=== PATIENT | male | born 1950 | race Caucasian/White ===

== ENCOUNTER 2018-08-28 22:09 | Inpatient (IN) ==
[2018-08-28 23:17] LABS: Basophils # 0.1 10*3/uL (0.0-0.2); Basophils % 0.2 % (0.0-0.8); Eosinophils # 0.2 10*3/uL (0.0-0.87); Eosinophils % 0.8 % (0.00-10.9); Immature Granulocytes % 0.4 %; Immature Granulocytes Absolute 0.09 #; Lymphocytes # 0.6 10*3/uL (1.4-4.0); Lymphocytes % 2.7 % (21.2-54.2); Mean Corpuscular HGB Conc 27.3 GM/DL (32-36); Mean Corpuscular Hemoglobin 22 PG (27-34); Mean Corpuscular Volume 80.1 FL (87-102); Mean Platelet Volume 9.6 FL (9.6-12.0); Monocytes # 1.1 10*3/uL (0.11-0.8); Monocytes % 4.9 % (1.7-12.7); Neutrophils # 20.3 10*3/uL (1.4-7.4); Platelet Count 266 T/CUMM (130-400); Red Blood Count 6.04 MC/CUMM (3.8-5.5); Red Cell Distribution Width 18.8 % (9.3-17.3); White Blood Count 22.3 T/CUMM (4-12)
[2018-08-28 23:35] LABS: Hematocrit 48.1 VOL% (42.0-52.0)
[2018-08-28 23:36] LABS: Hemoglobin 13.2 GM/DL (14.0-18.0)
[2018-08-28 23:39] LABS: Apearance,Urine CLEAR (Clear); Bacteria,Urine Occasional /HPF (Few); Bilirubin,Urine Negative (Negative); Blood, Urine Negative (Negative); Glucose,Urine (UA) Negative (Negative); Hyaline Casts,Urine 8 /LPF (0-3); Ketones,Urine Negative (Negative); Mucus,Urine Occasional /LPF (Occasional); Nitrite,Urine Negative (Negative); Protein,Urine Negative; RBC,Urine 1 /HPF (0-4); Squamous Epithelial Cell,Urine Occasional /HPF (0-10); Urine Color Yellow (Yellow); Urine Specific Gravity 1.018 (1.001-1.035); WBC,Urine 1 /HPF (0-6)
[2018-08-28 23:58] LABS: Band Neutrophils 8 % (0-10); Lymphocytes 4 % (20-55); Segmented Neutrophils 86 % (50-85); Total Cells Counted 100
[2018-08-29] LABS: Anisocytosis 1+
[2018-08-29 00:01] LABS: Ovalocytes Few; Platelet Estimate Normal
[2018-08-29 00:03] LABS: Albumin 3.2 G/DL (3.4-5.0); Bilirubin,Total 0.5 MG/DL (0.2-1.0); Calcium 7.9 MG/DL (8.5-10.1); Osmolality,Calculated 281.2 MOS/KG (273-304); Potassium 4.4 MMOL/L (3.5-5.1); Total Protein 6.9 G/DL (6.4-8.3)
[2018-08-29] MEDS ORDERED: cefTRIAXone 1,000 MG in SODIUM CHLORIDE 0.9% 100 ML IV STA (00:24)
[2018-08-29] MEDS ORDERED: ONDANSETRON 4 MG/2 ML VIAL IV PRN (00:58)
[2018-08-29] MEDS ORDERED: GLUCAGON 1 MG VIAL IM PRN (00:58)
[2018-08-29] MEDS ORDERED: DEXTROSE 50% 25 GM/50 ML SYRINGE IV PRN (00:58)
[2018-08-29] MEDS ORDERED: SODIUM CHLORIDE 0.9% 1,000 ML IV ONE (01:46)
[2018-08-29] MEDS: AZITHROMYCIN INJ 500 MG in SODIUM CHLORIDE 0.9% 250 ML IV SCH (04:39)
[2018-08-29] MEDS: ENOXAPARIN 40 MG/0.4 ML SYRINGE SUBCUT SCH (09:20)
[2018-08-29] MEDS: MONTELUKAST 10 MG TABLET PO SCH (09:21)
[2018-08-29] MEDS: SPIRONOLACTONE 50 MG TABLET PO SCH (09:21)
[2018-08-29] MEDS: CARVEDILOL 3.125 MG TABLET PO SCH ×2 (09:21→17:03)
[2018-08-29] MEDS: ASPIRIN EC 81 MG TABLET PO SCH (09:21)
[2018-08-29] MEDS: CLOPIDOGREL 75 MG TABLET PO SCH (09:21)
[2018-08-29] MEDS: ACETAMINOPHEN 325 MG TABLET PO PRN ×2 (09:21→22:35)
[2018-08-29] MEDS: cefTRIAXone 2,000 MG in SYRINGE 1 EACH IV SCH (09:22)
[2018-08-29] MEDS: PANTOPRAZOLE 40 MG TABLET PO SCH (09:22)
[2018-08-29] MEDS: INSULIN LISPRO 100 UNIT/ML SUBCUT SCH ×4 (09:22→22:39)
[2018-08-29] MEDS: BUDESONIDE/FORMOTEROL 160-4.5 INHALER 6 GM INH SCH (09:31)
[2018-08-29 09:35] LABS: Basophils % 0.2 % (0.0-0.8); Eosinophils # 0.1 10*3/uL (0.0-0.87); Eosinophils % 0.4 % (0.00-10.9); Immature Granulocytes % 0.6 %; Immature Granulocytes Absolute 0.08 #
[2018-08-29 09:56] LABS: Hematocrit 42.2 VOL% (42.0-52.0); Lymphocytes # 1.1 10*3/uL (1.4-4.0); Lymphocytes % 8.5 % (21.2-54.2); Mean Corpuscular HGB Conc 27.3 GM/DL (32-36); Mean Corpuscular Hemoglobin 22 PG (27-34); Mean Corpuscular Volume 79.3 FL (87-102); Mean Platelet Volume 9.6 FL (9.6-12.0); Monocytes # 0.6 10*3/uL (0.11-0.8); Monocytes % 4.2 % (1.7-12.7); Neutrophils # 11.6 10*3/uL (1.4-7.4); Neutrophils % 86.1 % (38.7-73.9); Platelet Count 262 T/CUMM (130-400); Red Blood Count 5.32 MC/CUMM (3.8-5.5); Red Cell Distribution Width 17.4 % (9.3-17.3); White Blood Count 13.5 T/CUMM (4-12)
[2018-08-29 10:01] LABS: Bilirubin,Total 0.4 MG/DL (0.2-1.0); Calcium 8.1 MG/DL (8.5-10.1); Total Protein 6.7 G/DL (6.4-8.3)
[2018-08-29 10:02] LABS: Hemoglobin 11.5 GM/DL (14.0-18.0)
[2018-08-29 10:11] LABS: Hypochromasia 1+; Ovalocytes Slight; Platelet Estimate Adequate
[2018-08-29 10:50] LABS: Hepatitis A Ab IgM Quant 0.14 Index; Hepatitis A Ab IgM Result Negative (Negative); Hepatitis B Core IgM Quant 0.12 Index; Hepatitis B Core IgM Result Negative (Negative); Hepatitis B Surface Ag Quant < 0.10 Index; Hepatitis B Surface Ag Result Negative (Negative); Hepatitis C Virus Ab Quant 0.08 Index; Hepatitis C Virus Ab Result Negative (Negative)
[2018-08-29] MEDS ORDERED: GABAPENTIN 600 MG TABLET PO ONE (11:16)
[2018-08-29] MEDS ORDERED: GABAPENTIN 600 MG TABLET PO SCH (15:00)
[2018-08-29] MEDS: GABAPENTIN 600 MG TABLET PO SCH (20:55)
[2018-08-29] MEDS ORDERED: ROSUVASTATIN 10 MG TABLET PO SCH (21:00)
[2018-08-30] MEDS: ACETAMINOPHEN 325 MG TABLET PO PRN (04:00)
[2018-08-30] MEDS: AZITHROMYCIN INJ 500 MG in SODIUM CHLORIDE 0.9% 250 ML IV SCH (04:01)
[2018-08-30 06:26] LABS: Bilirubin,Total 0.5 MG/DL (0.2-1.0); Calcium 8.3 MG/DL (8.5-10.1); Osmolality,Calculated 271.1 MOS/KG (273-304); Potassium 3.8 MMOL/L (3.5-5.1); Total Protein 6.5 G/DL (6.4-8.3)
[2018-08-30 06:44] LABS: Basophils % 0.3 % (0.0-0.8); Eosinophils # 0.3 10*3/uL (0.0-0.87); Eosinophils % 2.8 % (0.00-10.9); Hematocrit 40.9 VOL% (42.0-52.0); Immature Granulocytes % 0.7 %; Immature Granulocytes Absolute 0.07 #; Lymphocytes # 1.6 10*3/uL (1.4-4.0); Lymphocytes % 16.9 % (21.2-54.2); Mean Corpuscular HGB Conc 27.4 GM/DL (32-36); Mean Corpuscular Hemoglobin 22 PG (27-34); Mean Corpuscular Volume 80.2 FL (87-102); Mean Platelet Volume 9.7 FL (9.6-12.0); Monocytes # 0.7 10*3/uL (0.11-0.8); Monocytes % 7.2 % (1.7-12.7); Neutrophils # 6.8 10*3/uL (1.4-7.4); Neutrophils % 72.1 % (38.7-73.9); Platelet Count 237 T/CUMM (130-400); Red Cell Distribution Width 17.6 % (9.3-17.3); White Blood Count 9.5 T/CUMM (4-12)
[2018-08-30 06:45] LABS: Hemoglobin 11.2 GM/DL (14.0-18.0)
[2018-08-30 07:03] LABS: Hypochromasia 1+; Ovalocytes Slight; Platelet Estimate Adequate
[2018-08-30] MEDS: INSULIN LISPRO 100 UNIT/ML SUBCUT SCH ×2 (10:11→11:34)
[2018-08-30] MEDS: cefTRIAXone 2,000 MG in SYRINGE 1 EACH IV SCH (10:14)
[2018-08-30] MEDS: ENOXAPARIN 40 MG/0.4 ML SYRINGE SUBCUT SCH (10:14)
[2018-08-30] MEDS: CARVEDILOL 3.125 MG TABLET PO SCH (10:15)
[2018-08-30] MEDS: GABAPENTIN 600 MG TABLET PO SCH (10:15)
[2018-08-30] MEDS: MONTELUKAST 10 MG TABLET PO SCH (10:15)
[2018-08-30] MEDS: SPIRONOLACTONE 50 MG TABLET PO SCH (10:15)
[2018-08-30] MEDS: ASPIRIN EC 81 MG TABLET PO SCH (10:15)
[2018-08-30] MEDS: BUDESONIDE/FORMOTEROL 160-4.5 INHALER 6 GM INH SCH (10:15)
[2018-08-30] MEDS: CLOPIDOGREL 75 MG TABLET PO SCH (10:15)
[2018-08-30] MEDS: PANTOPRAZOLE 40 MG TABLET PO SCH (10:15)
[2018-08-30 11:05] VITALS: BP 150/88
== END 2018-08-30 11:34 | disposition home or self-care (01) | DRG 444 ==
LOC: N.ED 22:09 → N.EDINP 08-29 00:58 → N.5E 08-29 03:37
PROVIDERS: ADMIT Internal Medicine; ATTEND Internal Medicine

== ENCOUNTER 2021-05-10 12:49 | Observation (INO) ==
[2021-05-10] MEDS: methylPREDNISolone SOD SUC 40 MG/1 ML VIAL IV SCH (15:23)
[2021-05-10] MEDS ORDERED: ACETAMINOPHEN 325 MG TABLET PO PRN (16:27)
[2021-05-10] MEDS ORDERED: DEXTROSE 50% 25 GM/50 ML VIAL IV PRN ×2 (16:27)
[2021-05-10] MEDS ORDERED: ONDANSETRON 4 MG/2 ML VIAL IV PRN (16:27)
[2021-05-10] MEDS ORDERED: GLUCAGON 1 MG VIAL IM PRN ×2 (16:27)
[2021-05-10 17:09] LABS: Albumin 2.8 G/DL (3.4-5.0); Bilirubin,Total 0.6 MG/DL (0.20-1.00); Calcium 8.5 MG/DL (8.5-10.1); Osmolality,Calculated 283.5 MOS/KG (273-304); Potassium 5.3 MMOL/L (3.5-5.1); Total Protein 6.8 G/DL (6.4-8.2)
[2021-05-10 17:10] LABS: Basophils # 0.1 10*3/uL (0.0-0.2); Basophils % 1.1 % (0.0-0.8); Eosinophils # 0.9 10*3/uL (0.0-0.87); Eosinophils % 13.5 % (0.00-10.9); Hematocrit 51.6 VOL% (42.0-52.0); Hemoglobin 14.4 GM/DL (14.0-18.0); Immature Granulocytes % 1.9 %; Immature Granulocytes Absolute 0.12 #; Lymphocytes # 0.8 10*3/uL (1.4-4.0); Lymphocytes % 12.5 % (21.2-54.2); Mean Corpuscular HGB Conc 27.9 GM/DL (32-36); Mean Corpuscular Volume 88.5 FL (87-102); Mean Platelet Volume 8.6 FL (9.6-12.0); Monocytes % 7.1 % (1.7-12.7); NRBC # 0.04 10*3/uL; Neutrophils % 63.9 % (38.7-73.9); Platelet Count 172 T/CUMM (130-400); Red Blood Count 5.83 MC/CUMM (3.8-5.5); White Blood Count 6.4 T/CUMM (4-12)
[2021-05-10] MEDS: INSULIN LISPRO 100 UNIT/ML SUBCUT SCH ×2 (17:12→22:22)
[2021-05-10 17:13] LABS: ABG HCO3 28.4 MMOL/L (20-26); ABG Oxygen Saturation 80.7 % (95-100); ABG PCO2 62.6 MM HG (35-48); ABG PH 7.275 (7.35-7.45); ABG PO2 48.7 MM HG (80-95); ABG TCO2 30.3 MMOL/L (23-27)
[2021-05-10] MEDS: cefTRIAXone 2,000 MG in SODIUM CHLORIDE 0.9% 100 ML IV SCH (17:24)
[2021-05-10 17:33] LABS: Band Neutrophils 2 % (0-10); Eosinophils 12 % (0-10); Lymphocytes 13 % (20-55); Nucleated Red Blood Cells 3 (0-5); Segmented Neutrophils 68 % (50-85); Total Cells Counted 100
[2021-05-10 17:37] LABS: Anisocytosis 3+; Atypical Lymphocytes Few; Macrocytosis 2+; Microcytosis 3+; Platelet Estimate Adequate; Polychromasia 1+
[2021-05-10 17:38] LABS: Hypochromasia 1+
[2021-05-10] MEDS ORDERED: ALBUTEROL/IPRATROPIUM 3 ML NEB RESP TX SCH (19:00)
[2021-05-10] MEDS: SODIUM CHLORIDE 0.9% 1,000 ML IV SCH (19:05)
[2021-05-10] MEDS: ALBUTEROL/IPRATROPIUM 3 ML NEB RESP TX SCH ×2 (20:05→23:25)
[2021-05-10 21:00] LABS: ABG HCO3 24.3 MMOL/L (20-26); ABG Oxygen Saturation 94.1 % (95-100); ABG PO2 86.1 MM HG (80-95); ABG TCO2 28.1 MMOL/L (23-27)
[2021-05-10 21:04] LABS: ABG PCO2 80.1 MM HG (35-48); ABG PH 7.205 (7.35-7.45)
[2021-05-10] MEDS: DICLOFENAC SODIUM 75 MG TABLET PO SCH (22:21)
[2021-05-10] MEDS: ENOXAPARIN 30 MG/0.3 ML SYRINGE SUBCUT SCH (22:22)
[2021-05-10] MEDS: AZITHROMYCIN INJ 500 MG in SODIUM CHLORIDE 0.9% 250 ML IV SCH (23:49)
[2021-05-11] MEDS: methylPREDNISolone SOD SUC 40 MG/1 ML VIAL IV SCH ×3 (01:26→16:59)
[2021-05-11] MEDS: ALBUTEROL/IPRATROPIUM 3 ML NEB RESP TX SCH ×5 (03:05→20:50)
[2021-05-11 06:35] LABS: Osmolality,Calculated 281.7 MOS/KG (273-304); Potassium 5.8 MMOL/L (3.5-5.1)
[2021-05-11 06:48] LABS: Risk Ratio 3.85; Thyroid Stimulating Hormone 0.575 uIU/ml (0.358-3.74); VLDL Cholesterol 14.2 MG/DL
[2021-05-11 06:54] LABS: Basophils % 0.6 % (0.0-0.8); Eosinophils % 0.4 % (0.00-10.9); Hematocrit 50.9 VOL% (42.0-52.0); Hemoglobin 13.7 GM/DL (14.0-18.0); Immature Granulocytes % 1.7 %; Immature Granulocytes Absolute 0.09 #; Lymphocytes # 0.6 10*3/uL (1.4-4.0); Lymphocytes % 10.1 % (21.2-54.2); Mean Corpuscular HGB Conc 26.9 GM/DL (32-36); Mean Corpuscular Volume 89.5 FL (87-102); Mean Platelet Volume 9.1 FL (9.6-12.0); Monocytes % 1.1 % (1.7-12.7); NRBC # 0.04 10*3/uL; Neutrophils % 86.1 % (38.7-73.9); Platelet Count 197 T/CUMM (130-400); Red Blood Count 5.69 MC/CUMM (3.8-5.5); Red Cell Distribution Width 20.5 % (9.3-17.3); White Blood Count 5.4 T/CUMM (4-12)
[2021-05-11] MEDS ORDERED: SODIUM POLYSTYRENE SULFATE 15 GM/60 ML BOTTLE PO ONE (07:50)
[2021-05-11] MEDS: INSULIN LISPRO 100 UNIT/ML SUBCUT SCH ×4 (07:50→22:39)
[2021-05-11] MEDS: ASPIRIN CHEW 81 MG TABLET PO SCH (09:45)
[2021-05-11] MEDS: DICLOFENAC SODIUM 75 MG TABLET PO SCH ×2 (09:46→22:39)
[2021-05-11 10:54] LABS: ABG Base Excess 0.5 MMOL/L (-2.5-2.5); ABG HCO3 28.6 MMOL/L (20-26); ABG Oxygen Saturation 98.4 % (95-100); ABG PCO2 61.4 MM HG (35-48); ABG PH 7.286 (7.35-7.45); ABG PO2 124.2 MM HG (80-95); ABG TCO2 30.5 MMOL/L (23-27); Allen Test Positive; Pt O2 Delivery Device BIPAP
[2021-05-11 12:06] LABS: Ferritin 19.6 ng/mL (26-388)
[2021-05-11 12:23] LABS: Bilirubin,Urine Negative (Negative); Blood, Urine Large mg/dL (Negative); Glucose,Urine (UA) Negative (Negative); Ketones,Urine Negative (Negative); Mucus,Urine Occasional /LPF (Occasional); Nitrite,Urine Negative (Negative); Protein,Urine 100 MG/DL; RBC,Urine 107 /HPF (0-4); Squamous Epithelial Cell,Urine Occasional /HPF (0-10); Urine Appearance CLEAR (Clear); Urine Color Amber (Yellow); Urine Specific Gravity 1.044 (1.001-1.035)
[2021-05-11] MEDS: ARFORMOTEROL 15 MCG/2 ML NEB RESP TX SCH ×2 (14:28→20:50)
[2021-05-11] MEDS: ACETYLCYSTEINE 20% 800 MG/4 ML VIAL RESP TX SCH (14:28)
[2021-05-11] MEDS: BUDESONIDE 0.5 MG/2 ML NEB RESP TX SCH ×2 (14:28→20:50)
[2021-05-11] MEDS: SODIUM CHLORIDE 0.9% 1,000 ML IV SCH (14:32)
[2021-05-11] MEDS: cefTRIAXone 2,000 MG in SODIUM CHLORIDE 0.9% 100 ML IV SCH (17:01)
[2021-05-11] MEDS: AZITHROMYCIN INJ 500 MG in SODIUM CHLORIDE 0.9% 250 ML IV SCH (22:37)
[2021-05-11] MEDS: ENOXAPARIN 30 MG/0.3 ML SYRINGE SUBCUT SCH (22:39)
[2021-05-12] MEDS: ACETYLCYSTEINE 20% 800 MG/4 ML VIAL RESP TX SCH ×4 (00:25→23:50)
[2021-05-12] MEDS: ALBUTEROL/IPRATROPIUM 3 ML NEB RESP TX SCH ×7 (00:26→23:50)
[2021-05-12] MEDS: methylPREDNISolone SOD SUC 40 MG/1 ML VIAL IV SCH ×3 (03:13→17:49)
[2021-05-12 05:28] LABS: Calcium 8.1 MG/DL (8.5-10.1); Osmolality,Calculated 285.5 MOS/KG (273-304); Potassium 4.7 MMOL/L (3.5-5.1)
[2021-05-12 05:47] LABS: Basophils % 0.1 % (0.0-0.8); Eosinophils % 0.1 % (0.00-10.9); Hematocrit 49.4 VOL% (42.0-52.0); Immature Granulocytes % 1.3 %; Immature Granulocytes Absolute 0.13 #; Lymphocytes # 0.6 10*3/uL (1.4-4.0); Lymphocytes % 6.2 % (21.2-54.2); Mean Corpuscular HGB Conc 27.1 GM/DL (32-36); Mean Corpuscular Volume 88.4 FL (87-102); Mean Platelet Volume 9.8 FL (9.6-12.0); Monocytes % 5.7 % (1.7-12.7); NRBC # 0.03 10*3/uL; Neutrophils % 86.6 % (38.7-73.9); Platelet Count 218 T/CUMM (130-400); Red Blood Count 5.59 MC/CUMM (3.8-5.5); Red Cell Distribution Width 20.6 % (9.3-17.3); White Blood Count 9.8 T/CUMM (4-12)
[2021-05-12 06:04] LABS: Hemoglobin 13.4 GM/DL (14.0-18.0)
[2021-05-12] MEDS: BUDESONIDE 0.5 MG/2 ML NEB RESP TX SCH ×2 (07:00→19:47)
[2021-05-12] MEDS: ARFORMOTEROL 15 MCG/2 ML NEB RESP TX SCH ×2 (07:00→19:47)
[2021-05-12 08:45] LABS: ABG Base Excess 0.2 MMOL/L (-2.5-2.5); ABG HCO3 24.5 MMOL/L (20-26); ABG Oxygen Saturation 91.3 % (95-100); ABG PCO2 66.8 MM HG (35-48); ABG PH 7.258 (7.35-7.45); ABG PO2 72.5 MM HG (80-95); ABG TCO2 26.2 MMOL/L (23-27)
[2021-05-12] MEDS: ASPIRIN CHEW 81 MG TABLET PO SCH (09:06)
[2021-05-12] MEDS: DICLOFENAC SODIUM 75 MG TABLET PO SCH ×2 (09:06→20:59)
[2021-05-12] MEDS: INSULIN LISPRO 100 UNIT/ML SUBCUT SCH ×4 (11:05→20:59)
[2021-05-12 16:11] LABS: ABG Base Excess 0.2 MMOL/L (-2.5-2.5); ABG HCO3 29.4 MMOL/L (20-26); ABG Oxygen Saturation 97.2 % (95-100); ABG PH 7.247 (7.35-7.45); ABG PO2 104.8 MM HG (80-95); ABG TCO2 31.5 MMOL/L (23-27); Allen Test Positive; Pt O2 Delivery Device BIPAP
[2021-05-12] MEDS: cefTRIAXone 2,000 MG in SODIUM CHLORIDE 0.9% 100 ML IV SCH (16:11)
[2021-05-12] MEDS: ENOXAPARIN 30 MG/0.3 ML SYRINGE SUBCUT SCH (20:58)
[2021-05-12] MEDS ORDERED: MENTHOL/ZINC OXIDE OINT 71 GM JAR TOP SCH (21:00)
[2021-05-12] MEDS: AZITHROMYCIN INJ 500 MG in SODIUM CHLORIDE 0.9% 250 ML IV SCH (21:00)
[2021-05-12 21:47] LABS: ABG Base Excess 1.7 MMOL/L (-2.5-2.5); ABG HCO3 25.9 MMOL/L (20-26); ABG Oxygen Saturation 96.3 % (95-100); ABG PCO2 64.7 MM HG (35-48); ABG PH 7.285 (7.35-7.45); ABG PO2 91.7 MM HG (80-95)
[2021-05-13] MEDS: methylPREDNISolone SOD SUC 40 MG/1 ML VIAL IV SCH ×2 (00:12→10:00)
[2021-05-13] MEDS: ALBUTEROL/IPRATROPIUM 3 ML NEB RESP TX SCH ×3 (04:10→11:16)
[2021-05-13 05:48] LABS: Calcium 8.5 MG/DL (8.5-10.1); Osmolality,Calculated 286.5 MOS/KG (273-304); Potassium 5.1 MMOL/L (3.5-5.1)
[2021-05-13 06:16] LABS: Basophils % 0.1 % (0.0-0.8); Hematocrit 51.2 VOL% (42.0-52.0); Immature Granulocytes % 0.6 %; Immature Granulocytes Absolute 0.05 #; Lymphocytes # 0.6 10*3/uL (1.4-4.0); Lymphocytes % 6.5 % (21.2-54.2); Mean Corpuscular HGB Conc 28.1 GM/DL (32-36); Mean Corpuscular Volume 87.8 FL (87-102); Mean Platelet Volume 9.5 FL (9.6-12.0); Monocytes % 2.1 % (1.7-12.7); NRBC # 0.02 10*3/uL; Neutrophils % 90.7 % (38.7-73.9); Platelet Count 207 T/CUMM (130-400); Red Blood Count 5.83 MC/CUMM (3.8-5.5); Red Cell Distribution Width 20.8 % (9.3-17.3); White Blood Count 8.4 T/CUMM (4-12)
[2021-05-13 06:17] LABS: Hemoglobin 14.4 GM/DL (14.0-18.0)
[2021-05-13 06:21] LABS: Band Neutrophils 1 % (0-10); Lymphocytes 4 % (20-55); Platelet Estimate Normal; Segmented Neutrophils 94 % (50-85); Total Cells Counted 100
[2021-05-13] MEDS: ACETYLCYSTEINE 20% 800 MG/4 ML VIAL RESP TX SCH (07:21)
[2021-05-13] MEDS: ARFORMOTEROL 15 MCG/2 ML NEB RESP TX SCH (07:21)
[2021-05-13] MEDS: BUDESONIDE 0.5 MG/2 ML NEB RESP TX SCH (07:21)
[2021-05-13] MEDS ORDERED: FUROSEMIDE 40 MG/4 ML VIAL IV ONE (08:30)
[2021-05-13] MEDS: ASPIRIN CHEW 81 MG TABLET PO SCH (10:01)
[2021-05-13] MEDS: DICLOFENAC SODIUM 75 MG TABLET PO SCH (10:01)
[2021-05-13] MEDS: INSULIN LISPRO 100 UNIT/ML SUBCUT SCH (10:01)
[2021-05-13 12:24] VITALS: BP 149/90
== END 2021-05-13 12:54 | disposition home health service (06) ==
LOC: INTOOBSV 13:50 → N.TELEN 13:50 → SUATTDRO 13:50
PROVIDERS: ADMIT Internal Medicine; ATTEND Internal Medicine

== ENCOUNTER 2021-08-19 12:14 | Inpatient (IN) ==
[2021-08-19 12:57] LABS: INR 1.1; PT Patient Result 11.7 SECS (10.5-12.0)
[2021-08-19 13:10] LABS: Albumin 2.6 G/DL (3.4-5.0); Bilirubin,Total 1.4 MG/DL (0.20-1.00); Calcium 7.8 MG/DL (8.5-10.1); Osmolality,Calculated 280.4 MOS/KG (273-304); Potassium 4.6 MMOL/L (3.5-5.1); Total Protein 6.6 G/DL (6.4-8.2)
[2021-08-19] MEDS ORDERED: cefTRIAXone 1,000 MG in SODIUM CHLORIDE 0.9% 100 ML IV STA (13:27)
[2021-08-19] MEDS ORDERED: methylPREDNISolone SOD SUC 125 MG/2 ML VIAL IV STA (13:27)
[2021-08-19] MEDS ORDERED: ALBUTEROL/IPRATROPIUM 3 ML NEB RESP TX STA (13:27)
[2021-08-19 15:13] LABS: Basophils % 0.3 % (0.0-0.8); Eosinophils # 0.2 10*3/uL (0.0-0.87); Eosinophils % 5.1 % (0.00-10.9); Hematocrit 41.9 VOL% (42.0-52.0); Hemoglobin 12.2 GM/DL (14.0-18.0); Immature Granulocytes % 1.1 %; Immature Granulocytes Absolute 0.04 #; Lymphocytes # 0.8 10*3/uL (1.4-4.0); Lymphocytes % 19.9 % (21.2-54.2); Mean Corpuscular HGB Conc 29.1 GM/DL (32-36); Mean Corpuscular Volume 93.9 FL (87-102); Mean Platelet Volume 9.4 FL (9.6-12.0); Neutrophils % 64.6 % (38.7-73.9); Platelet Count 146 T/CUMM (130-400); Red Blood Count 4.46 MC/CUMM (3.8-5.5); Red Cell Distribution Width 18.1 % (9.3-17.3); White Blood Count 3.8 T/CUMM (4-12)
[2021-08-19] MEDS ORDERED: AZITHROMYCIN INJ 500 MG in SODIUM CHLORIDE 0.9% 250 ML IV ONE (16:34)
[2021-08-19] MEDS ORDERED: DEXTROSE 50% 25 GM/50 ML VIAL IV PRN (16:37)
[2021-08-19] MEDS ORDERED: GLUCAGON 1 MG VIAL IM PRN ×2 (16:37)
[2021-08-19] MEDS ORDERED: hydrALAZINE 20 MG/1 ML VIAL IV PRN (16:37)
[2021-08-19] MEDS ORDERED: DEXAMETHASONE 4 MG/1 ML VIAL IV SCH (17:00)
[2021-08-19] MEDS ORDERED: DEXTROSE 10% 25 GM/250 ML BAG IV PRN (17:00)
[2021-08-19] MEDS ORDERED: REMDESIVIR 200 MG in SODIUM CHLORIDE 0.9% 210 ML IV ONE (18:00)
[2021-08-19] MEDS: FUROSEMIDE 40 MG/4 ML VIAL IV SCH (18:05)
[2021-08-19 20:17] LABS: ABG Base Excess 5.5 MMOL/L (-2.5-2.5); ABG HCO3 29.2 MMOL/L (20-26); ABG Oxygen Saturation 91.3 % (95-100); ABG PH 7.308 (7.35-7.45); ABG PO2 64.2 MM HG (80-95); ABG TCO2 30.6 MMOL/L (23-27)
[2021-08-19] MEDS: INSULIN LISPRO 100 UNIT/ML SUBCUT SCH (21:00)
[2021-08-19] MEDS: GABAPENTIN 400 MG CAPSULE PO SCH (21:00)
[2021-08-19] MEDS: AMITRIPTYLINE 50 MG TABLET PO SCH (21:00)
[2021-08-19] MEDS: HEPARIN 5,000 UNIT/1 ML VIAL SUBCUT SCH (21:00)
[2021-08-19] MEDS: methylPREDNISolone SOD SUC 40 MG/1 ML VIAL IV SCH (21:00)
[2021-08-19] MEDS: ASCORBIC ACID 500 MG TABLET PO SCH (21:00)
[2021-08-19] MEDS: FAMOTIDINE 20 MG TABLET PO SCH (21:00)
[2021-08-19] MEDS: BUDESONIDE/FORMOTEROL 160-4.5 INHALER 6 GM INH SCH (21:00)
[2021-08-20] MEDS ORDERED: PNEUMOCOCCAL VACCINE (13 VALENT) 0.5 ML SYRINGE IM ONE (03:57)
[2021-08-20] MEDS: methylPREDNISolone SOD SUC 40 MG/1 ML VIAL IV SCH (06:06)
[2021-08-20] MEDS: HEPARIN 5,000 UNIT/1 ML VIAL SUBCUT SCH ×3 (06:07→20:48)
[2021-08-20 07:36] LABS: Calcium 8.3 MG/DL (8.5-10.1); Ferritin 66.3 ng/mL (26-388); Osmolality,Calculated 279.7 MOS/KG (273-304); Potassium 4.7 MMOL/L (3.5-5.1)
[2021-08-20 07:58] LABS: ABG Base Excess 7.3 MMOL/L (-2.5-2.5); ABG HCO3 30.6 MMOL/L (20-26); ABG Oxygen Saturation 77.9 % (95-100); ABG PH 7.312 (7.35-7.45); ABG PO2 45.8 MM HG (80-95); ABG TCO2 32.8 MMOL/L (23-27)
[2021-08-20 08:04] LABS: ABG PCO2 72.4 MM HG (35-48)
[2021-08-20] MEDS: INSULIN LISPRO 100 UNIT/ML SUBCUT SCH ×4 (08:32→20:48)
[2021-08-20] MEDS: GABAPENTIN 400 MG CAPSULE PO SCH ×3 (09:17→20:47)
[2021-08-20] MEDS: CHOLECALCIFEROL 1,000 UNIT TABLET PO SCH (09:17)
[2021-08-20] MEDS: ZINC GLUCONATE 50 MG TABLET PO SCH (09:17)
[2021-08-20] MEDS: CETIRIZINE 10 MG TABLET PO SCH (09:17)
[2021-08-20] MEDS: ASCORBIC ACID 500 MG TABLET PO SCH ×2 (09:18→20:47)
[2021-08-20] MEDS: SERTRALINE 25 MG TABLET PO SCH (09:19)
[2021-08-20] MEDS: ASPIRIN EC 81 MG TABLET PO SCH (09:19)
[2021-08-20] MEDS: CLOPIDOGREL 75 MG TABLET PO SCH (09:19)
[2021-08-20] MEDS: glipiZIDE 5 MG TABLET PO SCH (09:19)
[2021-08-20] MEDS: FAMOTIDINE 20 MG TABLET PO SCH ×2 (09:19→20:47)
[2021-08-20] MEDS: FUROSEMIDE 40 MG/4 ML VIAL IV SCH (09:25)
[2021-08-20] MEDS: DEXAMETHASONE 10 MG/1 ML VIAL IV SCH (09:25)
[2021-08-20] MEDS: INSULIN GLARGINE 100 UNIT/ML SUBCUT SCH (09:26)
[2021-08-20] MEDS: BUDESONIDE/FORMOTEROL 160-4.5 INHALER 6 GM INH SCH ×2 (09:26→20:48)
[2021-08-20] MEDS: REMDESIVIR 100 MG in SODIUM CHLORIDE 0.9% 100 ML IV SCH (09:34)
[2021-08-20 11:45] LABS: ABG Base Excess 7.9 MMOL/L (-2.5-2.5); ABG HCO3 31.7 MMOL/L (20-26); ABG PO2 93.7 MM HG (80-95); ABG TCO2 32.7 MMOL/L (23-27)
[2021-08-20 11:49] LABS: ABG PCO2 69.9 MM HG (35-48)
[2021-08-20] MEDS: AMITRIPTYLINE 50 MG TABLET PO SCH (20:47)
[2021-08-21] MEDS: HEPARIN 5,000 UNIT/1 ML VIAL SUBCUT SCH ×3 (05:05→21:16)
[2021-08-21 05:35] LABS: ABG Base Excess 7.7 MMOL/L (-2.5-2.5); ABG HCO3 31.5 MMOL/L (20-26); ABG Oxygen Saturation 99.2 % (95-100); ABG PH 7.303 (7.35-7.45); ABG TCO2 33.3 MMOL/L (23-27)
[2021-08-21 05:38] LABS: ABG PCO2 76.2 MM HG (35-48)
[2021-08-21 06:14] LABS: Calcium 8.2 MG/DL (8.5-10.1); Osmolality,Calculated 282.7 MOS/KG (273-304); Potassium 3.9 MMOL/L (3.5-5.1)
[2021-08-21 06:35] LABS: Basophils % 0.2 % (0.0-0.8); Hemoglobin 12.4 GM/DL (14.0-18.0); Immature Granulocytes % 0.8 %; Immature Granulocytes Absolute 0.04 #; Lymphocytes # 0.9 10*3/uL (1.4-4.0); Lymphocytes % 17.5 % (21.2-54.2); Mean Corpuscular HGB Conc 29.7 GM/DL (32-36); Mean Corpuscular Volume 93.9 FL (87-102); Mean Platelet Volume 9.7 FL (9.6-12.0); Monocytes % 9.5 % (1.7-12.7); Platelet Count 185 T/CUMM (130-400); Red Blood Count 4.44 MC/CUMM (3.8-5.5)
[2021-08-21 06:38] LABS: Hematocrit 41.7 VOL% (42.0-52.0)
[2021-08-21] MEDS: INSULIN LISPRO 100 UNIT/ML SUBCUT SCH ×4 (09:11→21:16)
[2021-08-21] MEDS: INSULIN GLARGINE 100 UNIT/ML SUBCUT SCH (09:18)
[2021-08-21] MEDS: FUROSEMIDE 40 MG/4 ML VIAL IV SCH (09:22)
[2021-08-21] MEDS: DEXAMETHASONE 10 MG/1 ML VIAL IV SCH (09:23)
[2021-08-21] MEDS: FAMOTIDINE 20 MG TABLET PO SCH ×2 (09:23→21:15)
[2021-08-21] MEDS: glipiZIDE 5 MG TABLET PO SCH (09:23)
[2021-08-21] MEDS: CHOLECALCIFEROL 1,000 UNIT TABLET PO SCH (09:24)
[2021-08-21] MEDS: ASCORBIC ACID 500 MG TABLET PO SCH ×2 (09:24→21:15)
[2021-08-21] MEDS: CETIRIZINE 10 MG TABLET PO SCH (09:24)
[2021-08-21] MEDS: ZINC GLUCONATE 50 MG TABLET PO SCH (09:24)
[2021-08-21] MEDS: CLOPIDOGREL 75 MG TABLET PO SCH (09:24)
[2021-08-21] MEDS: SERTRALINE 25 MG TABLET PO SCH (09:24)
[2021-08-21] MEDS: GABAPENTIN 400 MG CAPSULE PO SCH ×3 (09:24→21:15)
[2021-08-21] MEDS: ASPIRIN EC 81 MG TABLET PO SCH (09:24)
[2021-08-21] MEDS: REMDESIVIR 100 MG in SODIUM CHLORIDE 0.9% 100 ML IV SCH (09:25)
[2021-08-21] MEDS: BUDESONIDE/FORMOTEROL 160-4.5 INHALER 6 GM INH SCH ×2 (09:33→21:20)
[2021-08-21] MEDS: AZITHROMYCIN 250 MG TABLET PO SCH (14:42)
[2021-08-21] MEDS: AMITRIPTYLINE 50 MG TABLET PO SCH (21:15)
[2021-08-22 04:49] LABS: ABG Base Excess 10.6 MMOL/L (-2.5-2.5); ABG HCO3 34.3 MMOL/L (20-26); ABG Oxygen Saturation 97.6 % (95-100); ABG PH 7.335 (7.35-7.45); ABG TCO2 35.6 MMOL/L (23-27)
[2021-08-22 04:52] LABS: ABG PCO2 75.1 MM HG (35-48)
[2021-08-22 05:02] LABS: Osmolality,Calculated 287.4 MOS/KG (273-304); Potassium 4.7 MMOL/L (3.5-5.1)
[2021-08-22 05:10] LABS: Hematocrit 38.6 VOL% (42.0-52.0); Hemoglobin 11.7 GM/DL (14.0-18.0); Immature Granulocytes % 0.8 %; Immature Granulocytes Absolute 0.04 #; Lymphocytes % 20.3 % (21.2-54.2); Mean Corpuscular HGB Conc 30.3 GM/DL (32-36); Mean Corpuscular Volume 92.6 FL (87-102); Mean Platelet Volume 9.2 FL (9.6-12.0); Monocytes % 7.7 % (1.7-12.7); Neutrophils % 71.2 % (38.7-73.9); Platelet Count 155 T/CUMM (130-400); Red Blood Count 4.17 MC/CUMM (3.8-5.5); Red Cell Distribution Width 17.7 % (9.3-17.3); White Blood Count 5.1 T/CUMM (4-12)
[2021-08-22] MEDS: HEPARIN 5,000 UNIT/1 ML VIAL SUBCUT SCH ×3 (05:55→21:19)
[2021-08-22] MEDS: INSULIN LISPRO 100 UNIT/ML SUBCUT SCH ×4 (09:01→21:18)
[2021-08-22] MEDS: INSULIN GLARGINE 100 UNIT/ML SUBCUT SCH (10:32)
[2021-08-22] MEDS: CHOLECALCIFEROL 1,000 UNIT TABLET PO SCH (10:33)
[2021-08-22] MEDS: GABAPENTIN 400 MG CAPSULE PO SCH ×3 (10:33→21:18)
[2021-08-22] MEDS: CLOPIDOGREL 75 MG TABLET PO SCH (10:33)
[2021-08-22] MEDS: BUDESONIDE/FORMOTEROL 160-4.5 INHALER 6 GM INH SCH ×2 (10:33→22:30)
[2021-08-22] MEDS: ASCORBIC ACID 500 MG TABLET PO SCH ×2 (10:33→21:18)
[2021-08-22] MEDS: AZITHROMYCIN 250 MG TABLET PO SCH (10:33)
[2021-08-22] MEDS: FAMOTIDINE 20 MG TABLET PO SCH ×2 (10:34→21:17)
[2021-08-22] MEDS: SERTRALINE 25 MG TABLET PO SCH (10:34)
[2021-08-22] MEDS: CETIRIZINE 10 MG TABLET PO SCH (10:34)
[2021-08-22] MEDS: glipiZIDE 5 MG TABLET PO SCH (10:34)
[2021-08-22] MEDS: ZINC GLUCONATE 50 MG TABLET PO SCH (10:34)
[2021-08-22] MEDS: ASPIRIN EC 81 MG TABLET PO SCH (10:34)
[2021-08-22] MEDS: FUROSEMIDE 40 MG/4 ML VIAL IV SCH (10:35)
[2021-08-22] MEDS: DEXAMETHASONE 10 MG/1 ML VIAL IV SCH (10:35)
[2021-08-22] MEDS: REMDESIVIR 100 MG in SODIUM CHLORIDE 0.9% 100 ML IV SCH (10:36)
[2021-08-22] MEDS: AMITRIPTYLINE 50 MG TABLET PO SCH (21:17)
[2021-08-23 04:12] LABS: ABG Base Excess 11.9 MMOL/L (-2.5-2.5); ABG HCO3 40.8 MMOL/L (20-26); ABG Oxygen Saturation 97.8 % (95-100); ABG PH 7.345 (7.35-7.45); ABG PO2 111.3 MM HG (80-95); ABG TCO2 43.1 MMOL/L (23-27)
[2021-08-23 04:14] LABS: ABG PCO2 76.4 MM HG (35-48)
[2021-08-23 04:30] VITALS: BP 152/84
[2021-08-23] MEDS: HEPARIN 5,000 UNIT/1 ML VIAL SUBCUT SCH (05:35)
[2021-08-23 07:03] LABS: Calcium 8.2 MG/DL (8.5-10.1); Osmolality,Calculated 284.5 MOS/KG (273-304); Potassium 4.1 MMOL/L (3.5-5.1)
[2021-08-23 07:04] LABS: Hematocrit 42.5 VOL% (42.0-52.0); Hemoglobin 12.7 GM/DL (14.0-18.0); Immature Granulocytes % 0.5 %; Immature Granulocytes Absolute 0.03 #; Lymphocytes % 17.9 % (21.2-54.2); Mean Corpuscular HGB Conc 29.9 GM/DL (32-36); Mean Platelet Volume 9.2 FL (9.6-12.0); Monocytes % 7.5 % (1.7-12.7); Neutrophils % 74.1 % (38.7-73.9); Platelet Count 166 T/CUMM (130-400); Red Blood Count 4.62 MC/CUMM (3.8-5.5); Red Cell Distribution Width 17.2 % (9.3-17.3); White Blood Count 5.7 T/CUMM (4-12)
[2021-08-23] MEDS ORDERED: THEOPHYLLINE ER (24 HR) 400 MG CAPSULE PO SCH (09:30)
[2021-08-23] MEDS: INSULIN GLARGINE 100 UNIT/ML SUBCUT SCH (09:49)
[2021-08-23] MEDS: DEXAMETHASONE 10 MG/1 ML VIAL IV SCH (09:49)
[2021-08-23] MEDS: BUDESONIDE/FORMOTEROL 160-4.5 INHALER 6 GM INH SCH (09:49)
[2021-08-23] MEDS: INSULIN LISPRO 100 UNIT/ML SUBCUT SCH (09:49)
[2021-08-23] MEDS: GABAPENTIN 400 MG CAPSULE PO SCH (09:50)
[2021-08-23] MEDS: ZINC GLUCONATE 50 MG TABLET PO SCH (09:50)
[2021-08-23] MEDS: CHOLECALCIFEROL 1,000 UNIT TABLET PO SCH (09:50)
[2021-08-23] MEDS: AZITHROMYCIN 250 MG TABLET PO SCH (09:50)
[2021-08-23] MEDS: CLOPIDOGREL 75 MG TABLET PO SCH (09:50)
[2021-08-23] MEDS: FUROSEMIDE 40 MG/4 ML VIAL IV SCH (09:50)
[2021-08-23] MEDS: ASPIRIN EC 81 MG TABLET PO SCH (09:50)
[2021-08-23] MEDS: glipiZIDE 5 MG TABLET PO SCH (09:50)
[2021-08-23] MEDS: CETIRIZINE 10 MG TABLET PO SCH (09:51)
[2021-08-23] MEDS: REMDESIVIR 100 MG in SODIUM CHLORIDE 0.9% 100 ML IV SCH (09:51)
[2021-08-23] MEDS: SERTRALINE 25 MG TABLET PO SCH (09:51)
[2021-08-23] MEDS: FAMOTIDINE 20 MG TABLET PO SCH (09:51)
[2021-08-23] MEDS: ASCORBIC ACID 500 MG TABLET PO SCH (09:51)
== END 2021-08-23 13:40 | disposition home health service (06) | DRG 177 ==
LOC: SUATTDRO → N.ED 12:14 → N.EDINP 16:37 → SUATTDRO 16:37 → N.TELES 08-20 01:30
PROVIDERS: ADMIT Internal Medicine; ATTEND Emergency Medicine

== ENCOUNTER 2021-09-28 19:04 | Inpatient (IN) ==
[2021-09-28 20:57] LABS: Basophils # 0.1 10*3/uL (0.0-0.2); Eosinophils # 0.2 10*3/uL (0.0-0.87); Eosinophils % 3.1 % (0.00-10.9); Hematocrit 43.2 VOL% (42.0-52.0); Hemoglobin 12.8 GM/DL (14.0-18.0); Immature Granulocytes % 1.4 %; Lymphocytes # 1.5 10*3/uL (1.4-4.0); Lymphocytes % 20.5 % (21.2-54.2); Mean Corpuscular HGB Conc 29.6 GM/DL (32-36); Mean Platelet Volume 9.3 FL (9.6-12.0); Monocytes % 6.3 % (1.7-12.7); NRBC # 0.07 10*3/uL; Neutrophils % 67.7 % (38.7-73.9); Platelet Count 231 T/CUMM (130-400); Red Cell Distribution Width 18.8 % (9.3-17.3); White Blood Count 7.2 T/CUMM (4-12)
[2021-09-28 21:19] LABS: Albumin 2.9 G/DL (3.4-5.0); Bilirubin,Total 0.7 MG/DL (0.20-1.00); Osmolality,Calculated 282.4 MOS/KG (273-304); Potassium 4.7 MMOL/L (3.5-5.1); Total Protein 6.2 G/DL (6.4-8.2)
[2021-09-28 21:23] LABS: PT Patient Result 11.3 SECS (10.5-12.0)
[2021-09-28 22:14] LABS: Hyaline Casts,Urine 20 /LPF (0-3); Mucus,Urine Occasional /LPF (Occasional); RBC,Urine 41 /HPF (0-4); Urine Appearance Clear (Clear); Urine Color Yellow (Yellow)
[2021-09-28 22:15] LABS: Bilirubin,Urine Negative (Negative); Blood, Urine Large mg/dL (Negative); Glucose,Urine (UA) Negative (Negative); Ketones,Urine Negative (Negative); Nitrite,Urine Negative (Negative); Protein,Urine 30 MG/DL; Urine pH 5.5 (4.5-8.0)
[2021-09-28 23:26] LABS: ABG Base Excess 10.5 MMOL/L (-2.5-2.5); ABG HCO3 34.1 MMOL/L (20-26); ABG Oxygen Saturation 91.3 % (95-100); ABG PH 7.269 (7.35-7.45); ABG TCO2 37.8 MMOL/L (23-27)
[2021-09-28 23:28] LABS: ABG PCO2 91.9 MM HG (35-48)
[2021-09-28] MEDS ORDERED: VANCOMYCIN INJ 1,000 MG in SODIUM CHLORIDE 0.9% 250 ML IV STA (23:32)
[2021-09-28] MEDS ORDERED: ONDANSETRON 4 MG/2 ML VIAL IV PRN (23:44)
[2021-09-28] MEDS ORDERED: DEXTROSE 10% 250 ML BAG IV PRN (23:44)
[2021-09-28] MEDS ORDERED: ACETAMINOPHEN 325 MG TABLET PO PRN (23:44)
[2021-09-28] MEDS ORDERED: GLUCAGON 1 MG VIAL IM PRN (23:44)
[2021-09-28] MEDS ORDERED: DEXTROSE 50% 25 GM/50 ML VIAL IV PRN (23:44)
[2021-09-29] MEDS: ALBUTEROL/IPRATROPIUM 3 ML NEB RESP TX SCH ×4 (01:40→19:50)
[2021-09-29] MEDS ORDERED: VANCOMYCIN INJ 1,500 MG in SODIUM CHLORIDE 0.9% 500 ML IV ONE (02:00)
[2021-09-29] MEDS: ENOXAPARIN 40 MG/0.4 ML SYRINGE SUBCUT SCH (06:15)
[2021-09-29] MEDS ORDERED: FUROSEMIDE 40 MG TABLET PO SCH (08:00)
[2021-09-29 08:30] LABS: Basophils % 0.7 % (0.0-0.8); Eosinophils # 0.2 10*3/uL (0.0-0.87); Eosinophils % 3.6 % (0.00-10.9); Hemoglobin 11.5 GM/DL (14.0-18.0); Immature Granulocytes % 0.9 %; Immature Granulocytes Absolute 0.05 #; Lymphocytes # 1.2 10*3/uL (1.4-4.0); Lymphocytes % 22.1 % (21.2-54.2); Mean Corpuscular HGB Conc 30.3 GM/DL (32-36); Mean Platelet Volume 9.3 FL (9.6-12.0); Monocytes % 7.7 % (1.7-12.7); NRBC # 0.03 10*3/uL; Platelet Count 197 T/CUMM (130-400); Red Cell Distribution Width 18.7 % (9.3-17.3); White Blood Count 5.6 T/CUMM (4-12)
[2021-09-29 08:53] LABS: ABG HCO3 36.8 MMOL/L (20-26); ABG PCO2 67.9 MM HG (35-48); ABG PH 7.391 (7.35-7.45); ABG PO2 72.8 MM HG (80-95); ABG TCO2 36.8 MMOL/L (23-27); Allen Test Positive; Pt O2 Delivery Device BIPAP
[2021-09-29 09:02] LABS: Albumin 2.4 G/DL (3.4-5.0); Bilirubin,Total 0.5 MG/DL (0.20-1.00); Calcium 8.1 MG/DL (8.5-10.1); Osmolality,Calculated 281.4 MOS/KG (273-304); Potassium 3.8 MMOL/L (3.5-5.1); Total Protein 5.6 G/DL (6.4-8.2)
[2021-09-29] MEDS: INSULIN REGULAR 100 UNIT/ML SUBCUT SCH ×4 (09:15→23:00)
[2021-09-29] MEDS: PANTOPRAZOLE 40 MG TABLET PO SCH (09:18)
[2021-09-29] MEDS ORDERED: FUROSEMIDE 40 MG/4 ML VIAL IV SCH (10:00)
[2021-09-29] MEDS: methylPREDNISolone SOD SUC 40 MG/1 ML VIAL IV SCH ×2 (12:04→21:56)
[2021-09-29] MEDS: ceFAZolin 2,000 MG/50 ML DUPLEX IV SCH ×2 (12:05→21:56)
[2021-09-29] MEDS: BUDESONIDE 0.5 MG/2 ML NEB RESP TX SCH ×2 (13:21→19:50)
[2021-09-29] MEDS: FUROSEMIDE 40 MG/4 ML VIAL IV SCH (15:52)
[2021-09-30] MEDS: ALBUTEROL/IPRATROPIUM 3 ML NEB RESP TX SCH ×4 (01:10→19:30)
[2021-09-30] MEDS ORDERED: VANCOMYCIN INJ 2,000 MG in SODIUM CHLORIDE 0.9% 500 ML IV SCH (03:00)
[2021-09-30 04:05] LABS: ABG Base Excess 11.4 MMOL/L (-2.5-2.5); ABG HCO3 37.5 MMOL/L (20-26); ABG Oxygen Saturation 91.6 % (95-100); ABG PCO2 56.2 MM HG (35-48); ABG PH 7.442 (7.35-7.45); ABG TCO2 39.2 MMOL/L (23-27); Allen Test Positive; Pt O2 Delivery Device BIPAP
[2021-09-30] MEDS: ceFAZolin 2,000 MG/50 ML DUPLEX IV SCH ×3 (04:49→21:00)
[2021-09-30] MEDS: methylPREDNISolone SOD SUC 40 MG/1 ML VIAL IV SCH ×3 (04:49→21:00)
[2021-09-30 05:58] LABS: Basophils % 0.3 % (0.0-0.8); Hemoglobin 11.5 GM/DL (14.0-18.0); Immature Granulocytes % 0.7 %; Immature Granulocytes Absolute 0.05 #; Mean Corpuscular HGB Conc 31.1 GM/DL (32-36); Mean Corpuscular Volume 93.2 FL (87-102); Mean Platelet Volume 10.4 FL (9.6-12.0); Monocytes % 2.1 % (1.7-12.7); NRBC # 0.02 10*3/uL; Neutrophils % 83.9 % (38.7-73.9); Platelet Count 254 T/CUMM (130-400); Red Blood Count 3.97 MC/CUMM (3.8-5.5); White Blood Count 7.5 T/CUMM (4-12)
[2021-09-30 06:16] LABS: Osmolality,Calculated 275.1 MOS/KG (273-304); Potassium 4.4 MMOL/L (3.5-5.1)
[2021-09-30] MEDS: BUDESONIDE 0.5 MG/2 ML NEB RESP TX SCH ×2 (06:56→19:30)
[2021-09-30] MEDS: ENOXAPARIN 40 MG/0.4 ML SYRINGE SUBCUT SCH ×2 (07:23→17:17)
[2021-09-30] MEDS: INSULIN REGULAR 100 UNIT/ML SUBCUT SCH ×4 (07:23→21:01)
[2021-09-30] MEDS: DOCUSATE SODIUM 100 MG CAPSULE PO SCH (08:39)
[2021-09-30] MEDS: ASPIRIN EC 81 MG TABLET PO SCH (08:39)
[2021-09-30] MEDS: PANTOPRAZOLE 40 MG TABLET PO SCH (08:39)
[2021-09-30] MEDS: FUROSEMIDE 40 MG/4 ML VIAL IV SCH ×2 (08:39→15:33)
[2021-10-01] MEDS: ALBUTEROL/IPRATROPIUM 3 ML NEB RESP TX SCH ×4 (00:40→19:10)
[2021-10-01] MEDS: methylPREDNISolone SOD SUC 40 MG/1 ML VIAL IV SCH ×3 (04:04→21:00)
[2021-10-01] MEDS: ceFAZolin 2,000 MG/50 ML DUPLEX IV SCH ×3 (04:04→21:00)
[2021-10-01 05:28] LABS: Basophils % 0.1 % (0.0-0.8); Hematocrit 36.7 VOL% (42.0-52.0); Hemoglobin 11.4 GM/DL (14.0-18.0); Immature Granulocytes % 0.8 %; Immature Granulocytes Absolute 0.07 #; Lymphocytes # 0.9 10*3/uL (1.4-4.0); Lymphocytes % 10.7 % (21.2-54.2); Mean Corpuscular HGB Conc 31.1 GM/DL (32-36); Mean Corpuscular Volume 92.7 FL (87-102); Mean Platelet Volume 10.2 FL (9.6-12.0); Monocytes % 4.7 % (1.7-12.7); NRBC # 0.02 10*3/uL; Neutrophils % 83.7 % (38.7-73.9); Platelet Count 245 T/CUMM (130-400); Red Blood Count 3.96 MC/CUMM (3.8-5.5); Red Cell Distribution Width 18.2 % (9.3-17.3); White Blood Count 8.8 T/CUMM (4-12)
[2021-10-01] MEDS: ENOXAPARIN 40 MG/0.4 ML SYRINGE SUBCUT SCH ×2 (05:36→18:51)
[2021-10-01 05:46] LABS: Calcium 8.6 MG/DL (8.5-10.1); Osmolality,Calculated 278.1 MOS/KG (273-304); Potassium 3.6 MMOL/L (3.5-5.1)
[2021-10-01] MEDS: BUDESONIDE 0.5 MG/2 ML NEB RESP TX SCH ×2 (07:30→19:10)
[2021-10-01] MEDS: GABAPENTIN 600 MG TABLET PO SCH ×3 (09:13→20:59)
[2021-10-01] MEDS: FUROSEMIDE 40 MG/4 ML VIAL IV SCH ×2 (09:13→16:10)
[2021-10-01] MEDS: ASPIRIN EC 81 MG TABLET PO SCH (09:14)
[2021-10-01] MEDS: DOCUSATE SODIUM 100 MG CAPSULE PO SCH (09:14)
[2021-10-01] MEDS: PANTOPRAZOLE 40 MG TABLET PO SCH (09:14)
[2021-10-01] MEDS: INSULIN REGULAR 100 UNIT/ML SUBCUT SCH ×4 (09:50→20:59)
[2021-10-02] MEDS: ALBUTEROL/IPRATROPIUM 3 ML NEB RESP TX SCH ×2 (00:45→07:06)
[2021-10-02] MEDS: ENOXAPARIN 40 MG/0.4 ML SYRINGE SUBCUT SCH (05:19)
[2021-10-02] MEDS: ceFAZolin 2,000 MG/50 ML DUPLEX IV SCH (05:19)
[2021-10-02] MEDS: methylPREDNISolone SOD SUC 40 MG/1 ML VIAL IV SCH (05:22)
[2021-10-02 05:23] LABS: Basophils % 0.1 % (0.0-0.8); Hematocrit 40.6 VOL% (42.0-52.0); Hemoglobin 12.9 GM/DL (14.0-18.0); Immature Granulocytes % 0.8 %; Immature Granulocytes Absolute 0.07 #; Lymphocytes # 1.2 10*3/uL (1.4-4.0); Lymphocytes % 13.4 % (21.2-54.2); Mean Corpuscular HGB Conc 31.8 GM/DL (32-36); Mean Corpuscular Volume 89.6 FL (87-102); Mean Platelet Volume 9.5 FL (9.6-12.0); Monocytes % 5.4 % (1.7-12.7); Neutrophils % 80.3 % (38.7-73.9); Platelet Count 266 T/CUMM (130-400); Red Blood Count 4.53 MC/CUMM (3.8-5.5); White Blood Count 8.8 T/CUMM (4-12)
[2021-10-02 05:41] LABS: Osmolality,Calculated 277.2 MOS/KG (273-304); Potassium 3.7 MMOL/L (3.5-5.1)
[2021-10-02] MEDS: BUDESONIDE 0.5 MG/2 ML NEB RESP TX SCH (07:06)
[2021-10-02] MEDS: GABAPENTIN 600 MG TABLET PO SCH (10:01)
[2021-10-02] MEDS: ASPIRIN EC 81 MG TABLET PO SCH (10:01)
[2021-10-02] MEDS: DOCUSATE SODIUM 100 MG CAPSULE PO SCH (10:01)
[2021-10-02] MEDS: FUROSEMIDE 40 MG/4 ML VIAL IV SCH (10:01)
[2021-10-02 10:06] VITALS: BP 112/98
[2021-10-02] MEDS: PANTOPRAZOLE 40 MG TABLET PO SCH (10:17)
[2021-10-02] MEDS: INSULIN REGULAR 100 UNIT/ML SUBCUT SCH (10:17)
[2021-10-02 10:26] LABS: % Iron Saturation 11.6 % (18-50); Ferritin 36.3 ng/mL (26-388)
[2021-10-02 10:28] LABS: Basophils % 0.1 % (0.0-0.8); Hemoglobin 13.5 GM/DL (14.0-18.0); Immature Granulocytes % 0.9 %; Immature Granulocytes Absolute 0.09 #; Lymphocytes # 0.4 10*3/uL (1.4-4.0); Lymphocytes % 4.4 % (21.2-54.2); Mean Corpuscular HGB Conc 31.4 GM/DL (32-36); Mean Corpuscular Volume 91.3 FL (87-102); Mean Platelet Volume 9.4 FL (9.6-12.0); Monocytes % 5.2 % (1.7-12.7); Neutrophils % 89.4 % (38.7-73.9); Platelet Count 272 T/CUMM (130-400); Red Blood Count 4.71 MC/CUMM (3.8-5.5); Red Cell Distribution Width 18.1 % (9.3-17.3); White Blood Count 9.6 T/CUMM (4-12)
[2021-10-02 11:02] LABS: Folate 8.38 NG/ML (5.38-24.0); Vitamin B12 364 PG/ML (211-911)
[2021-10-02 11:36] LABS: Sedimentation Rate-Westergren 24 MM/HR (0-20)
[2021-10-02] MEDS ORDERED: ATORVASTATIN 40 MG TABLET PO SCH (13:00)
[2021-10-03 09:30] LABS: Hemoglobin A1 (Alkaline) 97.9 % (96.5-98.5); Hemoglobin A2 (Alkaline) 2.1 % (1.5-3.5)
== END 2021-10-02 12:02 | disposition home health service (06) | DRG 602 ==
LOC: N.ED 19:04 → N.3E 09-29 01:17
PROVIDERS: ADMIT Internal Medicine; ATTEND Internal Medicine